=== PATIENT | male | born 1980 | race Caucasian/White ===

== ENCOUNTER 2021-10-23 16:40 | Emergency (ER) | payer OTHER ==
[~2021-10-23 16:40] MED LIST: BENTYL 20MG TAB20 MG PO; ZOFRAN4 MG PO
[2021-10-23 20:54] LABS: HEMOGLOBIN 15.4 gm/dl (14.0-17.5); RED BLOOD COUNT 5.05 M/UL (4.20-5.50); WHITE BLOOD COUNT 8.2 K/UL (4.5-11.0)
[2021-10-23 21:29] LABS: BUN/CREATININE RATIO 13 (0-10)
[2021-10-24] MEDS ORDERED: BENTYL 20MG TAB20 MG PO (01:25)
[2021-10-24] MEDS ORDERED: ZOFRAN ODT 4 MG4 MG PO (01:25)
== END 2021-10-24 01:30 | disposition home or self-care (01) ==
LOC: ER1 16:40
PROVIDERS: Physician Assistant
DX: R10.11 Right upper quadrant pain (principal); I10 Essential (primary) hypertension; F17.200 Nicotine dependence, unspecified, uncomplicated
CPT/HCPCS: 80053; 81001; 85025; 99284